=== PATIENT | female | born 1975 | race Caucasian/White ===

== ENCOUNTER 2021-01-05 19:53 | Inpatient (IN) | payer MEDICAID ==
[~2021-01-05] VITALS: Ht 154.9 cm; Wt 89.3 kg
[~2021-01-05 19:53] MED LIST: AZIT250T89 PO; DOCU-131 PO; FAMO40TA61 PO; HYDR-3653 PO; IBUP-1222 PO; LABE300T2 PO; LEVO750T26 PO; LISI-167 PO; LOSARTAN PO; OXYC-380 PO; PRAM0.25 PO
[2021-01-05 21:35] LABS: BASOPHILS % (AUTO) 0 % (0-1); EOSINOPHILS % (AUTO) 1 % (1-7); LYMPHOCYTES % (AUTO) 31 % (22-44); MEAN CORPUSCULAR HEMOGLOBIN 30.5 pg (27.0-34.8); MEAN CORPUSCULAR HGB CONC 34.1 g/dL (32.4-35.8); MEAN PLATELET VOLUME 9.3 fL (7.4-10.4); MONOCYTES % (AUTO) 9 % (2-9); NEUTROPHILS % (AUTO) 59 % (42-75); PLATELET COUNT 215 x10^3/uL (130-400); RED BLOOD COUNT 5.42 x10^6/uL (3.82-5.3); RED CELL DISTRIBUTION WIDTH 14.5 % (9.6-15.2)
[2021-01-05 21:36] LABS: MD NO
[2021-01-05 21:45] LABS: ALANINE AMINOTRANSFERASE 38 U/L (12-78); ALBUMIN 3.6 g/dL (3.4-5.0); ANION GAP 8 mmol/L (5-15); CHLORIDE 110 mmol/L (98-107); CREATININE 0.73 mg/dL (0.55-1.02)
[2021-01-05 21:50] LABS: ALKALINE PHOSPHATASE 82 U/L (45-117); BILIRUBIN,TOTAL 0.4 mg/dL (0.2-1.0); TOTAL PROTEIN 8.3 g/dL (6.4-8.2); TROPONIN I < 0.015 ng/mL (0.000-0.045)
[2021-01-05] MEDS ORDERED: ONDANSETRON 2MG/ML, 2ML ONE (23:21)
[2021-01-05] MEDS ORDERED: MORPHINE SULFATE 4 MG/ML, 1ML ONE (23:21)
[2021-01-05] MEDS ORDERED: NITROGLYCERIN OINT 2%, 1GM TP ONE ×2 (23:21→23:30)
[2021-01-05] MEDS ORDERED: MORPHINE SULFATE 4 MG/ML, 1ML IVPush PRN (23:30)
[2021-01-05] MEDS ORDERED: ONDANSETRON 2MG/ML, 2ML IVPush ONE (23:30)
--- NOTE | 2021-01-05 23:57 | NUR ---
REPORT GIVEN TO ERIBERTO MOTTA
[2021-01-06 00:29] VITALS: BP 175/96
[2021-01-06] MEDS ORDERED: DOCUSATE 100 MG CAPSULE PO PRN (00:30)
[2021-01-06] MEDS ORDERED: MELATONIN 5 MG TABLET PO PRN (00:30)
[2021-01-06] MEDS ORDERED: LORazepam 2 MG/ML, 1ML IVPush PRN (00:30)
[2021-01-06] MEDS ORDERED: ACETAMINOPHEN 325 MG TABLET PO PRN (00:30)
[2021-01-06] MEDS ORDERED: BISACODYL 10 MG SUPP PR PRN (00:30)
[2021-01-06] MEDS ORDERED: ONDANSETRON 2MG/ML, 2ML IVPush PRN (00:30)
[2021-01-06] MEDS ORDERED: OXYcodone IR 5MG TABLET PO PRN (00:30)
[2021-01-06] MEDS ORDERED: TEMAZEPAM 15 MG CAPSULE PO PRN (00:30)
[2021-01-06] MEDS ORDERED: POLYETHYLENE GLYCOL 17 GM PACKET PO PRN (00:30)
[2021-01-06] MEDS ORDERED: MORPHINE SULFATE 4 MG/ML, 1ML IVPush PRN (01:00)
[2021-01-06 01:04] LABS: TROPONIN I < 0.015 ng/mL (0.000-0.045)
[2021-01-06 01:14] VITALS: BP 176/80
[2021-01-06] MEDS ORDERED: hydrALAzine 20 MG/ML, 1ML IV PRN (02:00)
[2021-01-06 03:05] VITALS: BP 144/73
[2021-01-06 05:19] LABS: BASOPHILS % (AUTO) 0 % (0-1); EOSINOPHILS % (AUTO) 2 % (1-7); LYMPHOCYTES % (AUTO) 35 % (22-44); MEAN CORPUSCULAR HEMOGLOBIN 31.2 pg (27.0-34.8); MEAN CORPUSCULAR HGB CONC 34.3 g/dL (32.4-35.8); MEAN PLATELET VOLUME 8.7 fL (7.4-10.4); MONOCYTES % (AUTO) 10 % (2-9); NEUTROPHILS % (AUTO) 53 % (42-75); PLATELET COUNT 203 x10^3/uL (130-400); RED BLOOD COUNT 5.22 x10^6/uL (3.82-5.3); RED CELL DISTRIBUTION WIDTH 14.7 % (9.6-15.2)
[2021-01-06 05:32] LABS: ANION GAP 4 mmol/L (5-15); CALCIUM 9.8 mg/dL (8.5-10.1); CHLORIDE 110 mmol/L (98-107)
[2021-01-06 05:37] LABS: MD NO
[2021-01-06 05:44] LABS: CHOL/HDL RATIO 5.9; CHOLESTEROL, TOTAL 223 mg/dL (140-239); CREATININE 0.72 mg/dL (0.55-1.02); HDL CHOL % 17 % (28-40); HDL CHOLESTEROL (DIRECT) 38 mg/dL (40-60); LDL CHOLESTEROL,CALCULATED 163 mg/dL (54-169); LDL/HDL RATIO 4.3 (0.5-3.0); TRIGLYCERIDES 111 mg/dL (50-200); VLDL CHOLESTEROL 22 mg/dL (0-25)
[2021-01-06 08:25] VITALS: BP 151/87
[2021-01-06] MEDS ORDERED: FAMOTIDINE 20 MG TABLET PO SCH (09:00)
[2021-01-06] MEDS ORDERED: LISINOPRIL 10 MG TABLET PO SCH (09:00)
[2021-01-06 09:05] LABS: TROPONIN I < 0.015 ng/mL (0.000-0.045)
[2021-01-06] MEDS ORDERED: REGADENOSON 0.4 MG/5 ML SYRINGE ONE (09:51)
[2021-01-06 12:24] VITALS: BP 150/79
== END 2021-01-06 15:10 | disposition home or self-care (01) | DRG 199 ==
LOC: ED 21:44 → EDIP 23:38 → 5SO 01-06 00:19 → DCLOUNGE 01-06 15:00 → 4WST 01-06 15:34 → DCLOUNGE 01-06 15:41 → 4WST 01-06 15:41
PROVIDERS: ADMIT Internal Medicine; ATTEND Internal Medicine
DX: I16.0 Hypertensive urgency (principal); E66.9 Obesity, unspecified; F12.90 Cannabis use, unspecified, uncomplicated; F17.210 Nicotine dependence, cigarettes, uncomplicated; J00 Acute nasopharyngitis [common cold]; G43.909 Migraine, unspecified, not intractable, without status migrainosus; Z68.37 Body mass index [BMI] 37.0-37.9, adult
CPT/HCPCS: 36415; 71045; 78452; 80048; 80053; 80061; 83036; 83735; 83880; 84100; 84443; 84484; 85025; 93005; 93017; 93306; 93356; 96374; 96375; 99285; J2405; J2785; A9502; J2270